=== PATIENT | female | born 1950 | race Caucasian/White ===

== ENCOUNTER → 2017-07-11 | Outpatient (CLI) | payer MEDICARE ==
[2017-07-11 12:02] LABS: BLOOD UREA NITROGEN 17 mg/dL (7-18)
[2017-07-11 12:10] LABS: ASPARTATE AMINO TRANSFERASE 33 U/L (15-37)
== END | disposition home or self-care (01) ==
LOC: STAR 10:30
PROVIDERS: ATTEND Surgery
DX: Z01.818 Encounter for other preprocedural examination (principal); D48.61 Neoplasm of uncertain behavior of right breast; R94.31 Abnormal electrocardiogram [ECG] [EKG]
CPT/HCPCS: 36415; 80053; 93005

== ENCOUNTER 2017-07-25 07:10 | Day surgery (SDC) | payer MEDICARE ==
[~2017-07-25] VITALS: Ht 162.6 cm; Wt 95.0 kg
[~2017-07-25 07:10] MED LIST: ASPI-496 PO; CHOL10003 PO; GLIP5TAB10 PO; LISI5TAB7 PO; METF500T4 PO; METH454P2 PO; MULT1TAB60 PO; OMEG1CAP39 PO
[2017-07-25] MEDS ORDERED: LACTATED RINGERS 1,000 ML IV SCH (07:33)
[2017-07-25 07:34] VITALS: BP 139/83
[2017-07-25] MEDS ORDERED: BUPIVACAINE/PF 0.5% ONE (08:40)
[2017-07-25] MEDS ORDERED: EPINEPHRINE 1 MG/ML, 1ML ONE (08:40)
[2017-07-25] MEDS ORDERED: FENTANYL PF 100 MCG/2ML ONE ×3 (08:53→08:54)
[2017-07-25] MEDS ORDERED: GLYCOPYRROLATE 0.2MG/1ML, 5ML ONE (08:53)
[2017-07-25] MEDS ORDERED: ROCURONIUM 10 MG/ML,10ML ONE (08:53)
[2017-07-25] MEDS ORDERED: LIDOCAINE-MPF 2% ,5ML ONE (08:53)
[2017-07-25] MEDS ORDERED: PROPOFOL 10 MG/ML, 20ML ONE (08:53)
[2017-07-25] MEDS ORDERED: DEXAMETHASONE 4 MG/ML, 1ML ONE (08:53)
[2017-07-25] MEDS ORDERED: MIDAZOLAM 1 MG/ML, 2ML ONE (08:54)
[2017-07-25] MEDS ORDERED: ONDANSETRON 2MG/ML, 2ML ONE (08:57)
[2017-07-25] MEDS ORDERED: CEFAZOLIN 1,000 MG ONE (08:57)
[2017-07-25] MEDS ORDERED: MEPERIDINE/PF 25MG/0.5ML IVPush PRN (09:00)
[2017-07-25] MEDS ORDERED: ACETAMINOPHEN 325 MG TABLET PO PRN (09:00)
[2017-07-25] MEDS ORDERED: OXYcodone 5 MG/5 ML ORAL.SOL UDC PO PRN (09:00)
[2017-07-25] MEDS ORDERED: LABETALOL 5MG/ML, 20ML IV PRN (09:00)
[2017-07-25] MEDS ORDERED: ONDANSETRON 2MG/ML, 2ML IVPush PRN (09:00)
[2017-07-25] MEDS ORDERED: morphine SULFATE 10 MG/ML, 1ML IV PRN (09:00)
[2017-07-25] MEDS ORDERED: KETOROLAC 30 MG/1 ML IV PRN (09:00)
[2017-07-25] MEDS ORDERED: FENTANYL PF 100 MCG/2ML IV PRN (09:00)
[2017-07-25] MEDS ORDERED: MIDAZOLAM 1 MG/ML, 2ML IV PRN (09:00)
[2017-07-25] MEDS ORDERED: HYDROcodone/APAP 7.5-325MG/15ML UDC PO PRN (09:00)
[2017-07-25] MEDS ORDERED: BUPIVACAINE/PF-EPI 0.5% 1:200K INFIL ONE (09:29)
== END 2017-07-25 11:45 | disposition home or self-care (01) ==
LOC: OUT 07:10
PROVIDERS: ATTEND Surgery
DX: D48.61 Neoplasm of uncertain behavior of right breast (principal); Z79.82 Long term (current) use of aspirin; E11.9 Type 2 diabetes mellitus without complications; I10 Essential (primary) hypertension; E66.9 Obesity, unspecified; Z68.35 Body mass index [BMI] 35.0-35.9, adult
CPT/HCPCS: 19120; 82962; 88307; J0171; J0690; J1100; J2250; J2405; J2704; J3010; J3490; J7120; 88341; 88342; G0461

== ENCOUNTER → 2018-05-15 | Outpatient (CLI) | payer MEDICARE ==
[~2018-05-15] MED LIST changes: +METF500T17 PO; -METF500T4 PO
== END | disposition home or self-care (01) ==
LOC: CFH 09:35
PROVIDERS: ATTEND Genetic Counselor, MS
DX: Z12.31 Encounter for screening mammogram for malignant neoplasm of breast (principal); Z13.820 Encounter for screening for osteoporosis; Z78.0 Asymptomatic menopausal state
CPT/HCPCS: 77063; 77080; 77067

== ENCOUNTER → 2019-07-02 | Outpatient (CLI) | payer MEDICARE | END | disposition home or self-care (01) | LOC: CFH 09:57 | PROVIDERS: ATTEND Genetic Counselor, MS | DX: Z12.31 Encounter for screening mammogram for malignant neoplasm of breast (principal) | CPT/HCPCS: 77063; 77067 ==

== ENCOUNTER → 2021-01-25 | Outpatient (CLI) | payer MEDICARE ==
[~2021-01-25] MED LIST changes: +MULT-449 PO; -MULT1TAB60 PO
== END | disposition home or self-care (01) ==
LOC: CFH 10:02
PROVIDERS: ATTEND Genetic Counselor, MS
DX: Z12.31 Encounter for screening mammogram for malignant neoplasm of breast (principal)
CPT/HCPCS: 77063; 77067